=== PATIENT | male | born 1965 | race Caucasian/White ===

== ENCOUNTER 2020-03-19 20:01 | Emergency (ER) | payer OTHER ==
[~2020-03-19] VITALS: Ht 177.8 cm; Wt 114.5 kg
[2020-03-19 20:07] VITALS: Ht 177.8 cm; Wt 114.5 kg
[2020-03-19 21:12] LABS: BASOPHIL % 0.7 % (0-2); PLATELET COUNT 186 x10^3mcL (130-400); RED CELL DISTRIBUTION WIDTH 13.3 % (11.5-14.5)
[2020-03-19 21:21] LABS: microscopic required? YES; urine erythrocyte 3+ (NEGATIVE)
[2020-03-19 21:26] LABS: CALCIUM 9.5 mg/dL (8.5-10.1); CHLORIDE SERUM 97 mmol/L (98-107); CREATININE SERUM 1.8 mg/dL (0.7-1.3); GFR1 42 mL/min; GLUCOSE SERUM 328 mg/dL (74-106); POTASSIUM SERUM 3.8 mmol/L (3.5-5.1); SODIUM SERUM 134 mmol/L (136-145)
[2020-03-19 21:30] LABS: ALBUMIN 3.9 g/dL (3.4-5.0); ALKALINE PHOSPHATASE 98 U/L (46-116); ALT/SGPT 80 U/L (16-63); AST/SGOT 35 U/L (15-37); BILIRUBIN TOTAL 1.1 mg/dL (0.20-1.00); LIPASE 187 IU/L (73-393); TOTAL PROTEIN, SERUM 7.6 g/dL (6.4-8.2)
[2020-03-19 23:18] VITALS: BP 135/91
== END 2020-03-19 23:18 | disposition home or self-care (01) ==
LOC: ED 20:01
PROVIDERS: Emergency Medicine
DX: N20.0 Calculus of kidney (principal); R73.9 Hyperglycemia, unspecified
CPT/HCPCS: Q0162